=== PATIENT | male | born 1940 ===

== ENCOUNTER 2019-04-24 06:23 | Outpatient (RCR) | payer MEDICARE, OTHER, SELFPAY | END 2019-05-23 00:01 | LOC: ONCMED 06:23 | PROVIDERS: Family Provider Family Medicine; Visit Provider Internal Medicine Medical Oncology | DX: D50.9 Iron deficiency anemia, unspecified (principal); C91.10 Chronic lymphocytic leukemia of B-cell type not having achieved remission ==